=== PATIENT | male | born 1965 | race Caucasian/White ===

== ENCOUNTER → 2020-12-06 12:03 | Outpatient (CLI) | payer BC, SELFPAY ==
--- NOTE | ~2020-12-06 | XR_ITS ---
EXAMINATION: XR abdomen obstructive series DATE: 12/06/2020 12:52 INDICATION: Right lower quadrant pain TECHNIQUE: Supine and upright views of the abdomen. FINDINGS: No prior studies for comparison. The visualized lung parenchyma is normal.. There is a nonobstructive bowel gas pattern. Gas and stool are seen throughout the colon to the level of the rectum. There is no free air. No abnormal calcifi cations. IMPRESSION: 1. No acute abdominal abnormality. Reviewed, dictated and finalized at location A.
== END ==
PROVIDERS: PCP Family Medicine; Visit Provider Physician Assistant
DX: R10.31 Right lower quadrant pain (principal)
CPT/HCPCS: 74019

== ENCOUNTER 2021-03-01 05:15 | Day surgery (SDC) | payer BC, SELFPAY ==
[2021-02-21 13:28] VITALS: BMI 32.8
--- NOTE | 2021-03-01 09:22 | WPDANESEPPF ---
Anes - Initial Pre Proc Eval Procedure: Operation Date: 03/01/21 12:30 Proposed Procedures p Colonoscopy - Leobardo Hodges MD Date/Time: 03/01/21 09:22 Surgeon: Leobardo Hodges MD Pre Op Diagnosis: change in bowel habits Patient Data Age: 55 Gender: M Height: 1.78 m Weight: 104 kg Allergies Allergy/AdvReac Type Severity Reaction Status Date / Time No Known Allergies Allergy Verified 03/01/21 12:08 Home Medications Medication Instructions Recorded Confirmed Type atorvastatin 20 mg PO DAILY 02/21/21 03/01/21 History Patient hx anesthesia problems: none Family hx anesthesia problems: none PMFSH Past Medical History Medical History (Updated 02/05/21 @ 08:58 by Leobardo Hodges MD) BMI 32.0-32.9,adult Encounter for wellness examination Mixed hyperlipidemia Primary hypertension Surgical History Surgical History History of tonsillectomy History of vasectomy Family History Family History Mother Family history of aortic aneurysm Father Malignant neoplasm of prostate Other Family history of coronary artery disease Social History Social History Smoking status: Never smoker Second hand tobacco smoke exposure: No Alcohol intake: current Alcohol use details: BEER Substance use: never Substance use type: does not use Living arrangements: with family Gender identity (if verbalized by the patient): Male Spiritual care concerns: No Agree to blood products: Yes Anes - Eval Final PreProcedure Day of Procedure 03/01/21 09:22 Patient weight: obese Heart: regular rate and rhythm Lungs: clear to auscultation and normal air movement Airway: Mallampati scale class II Neurological: alert and oriented Last oral intake: >/= 8 hours ASA classification: III Emergent: no Anesthetic plan: proceed Anesthesia type and monitoring: general GIVS Informed Consent: The patient's anesthetic plan and its attendant risks and benefits were discussed with the patient/family/POA. Questions were solicited and answers provided to the satisfaction of the patient/family/POA.
[2021-03-01 12:10] VITALS: BP 116/79; PULSE 66; RESP 16; TEMP 36.4; O2SAT 97; BMI 32.5
[2021-03-01] MEDS: LACTATED RINGERS 1,000 ML 150 ML IV CONT (12:27)
--- NOTE | 2021-03-01 13:02 | PM.HPGS ---
History of Present Illness History of Present Illness Consent: Risks, benefits, and alternatives have been discussed and questions answered. Patient agrees to proceed with procedure. Chief complaint: change in bowel habits Narrative: Devon Coelho is a 55 year old male with change in bowel habits Review of Systems Review of Systems: All systems reviewed & are unremarkable except as noted in HPI and below PMFSH Past Medical History Medical History BMI 32.0-32.9,adult Encounter for wellness examination Mixed hyperlipidemia Primary hypertension Surgical History Surgical History History of tonsillectomy History of vasectomy Family History Family History Mother Family history of aortic aneurysm Father Malignant neoplasm of prostate Other Family history of coronary artery disease Social History Social History Smoking status: Never smoker Second hand tobacco smoke exposure: No Alcohol intake: current Alcohol use details: BEER Substance use: never Substance use type: does not use Living arrangements: with family Gender identity (if verbalized by the patient): Male Spiritual care concerns: No Agree to blood products: Yes Meds Home Medications and Allergies Home Medications Medication Instructions Recorded Confirmed Type atorvastatin 20 mg PO DAILY 02/21/21 03/01/21 History Allergies Allergy/AdvReac Type Severity Reaction Status Date / Time No Known Allergies Allergy Verified 03/01/21 12:08 Vital Signs Vital Signs - 24 hr 03/01/21 12:10 Temperature 36.4 C L Pulse Rate 66 Respiratory Rate 16 Blood Pressure 116/79 Pulse Oximetry 97 Exam Resp: Auscultation: clear to auscultation bilaterally Cardio: Rate: regular rate Rhythm: regular rhythm GI: GI Palp: Yes Soft to palpation and No Tenderness to palpation present (GI) Assessment and Plan Assessment and plan (1) Change in bowel habits: Code(s): R19.4 - Change in bowel habit Status: Acute Assessment and Plan: Colonoscopy with possible biopsy or polypectomy or cautery or injection of substances.
[2021-03-01 13:25] VITALS: BP 132/69; PULSE 71; RESP 20; O2SAT 96
[2021-03-01 13:35] VITALS: BP 124/81; PULSE 61; RESP 21; O2SAT 97
[2021-03-01 13:45] VITALS: BP 131/89; PULSE 56; RESP 19; O2SAT 99
== END 2021-03-01 13:58 | disposition home or self-care (01) ==
PROVIDERS: PCP Family Medicine; Visit Provider Internal Medicine Gastroenterology
PROC: 0DJD8ZZ Inspection of Lower Intestinal Tract, Via Natural or Artificial Opening Endoscopic (ICD-10-PCS; CPT 45378; principal; 2021-03-01 12:30)
DX: Z12.11 Encounter for screening for malignant neoplasm of colon (principal); R19.4 Change in bowel habit; E78.2 Mixed hyperlipidemia; I10 Essential (primary) hypertension; E66.9 Obesity, unspecified; Z68.32 Body mass index [BMI] 32.0-32.9, adult
CPT/HCPCS: 45378; J2704; J7120

== ENCOUNTER → 2023-03-27 13:09 | Outpatient (CLI) | payer BC, SELFPAY ==
--- NOTE | ~2023-03-27 | CT_ITS ---
EXAMINATION: CT abdomen pelvis w con INDICATION: Right lower quadrant abdominal pain TECHNIQUE: Computed tomographic images of the abdomen and pelvis were obtained after the administrati on of 100 cc of Omnipaque 350 intravenous contrast. The dose-length product (DLP) was 1124.77 mGy-cm. Automated exposure control and iterative reconstruction technique were employed. COMPARISON: None available FINDINGS: Minimal dependent atelectasis is present in the lung bases. The heart size is normal. The l iver, spleen, pancreas, gallbladder, and adrenal glands are normal. The kidneys are unremarkable. The appendix is normal. No pathologically enlarged abdominal or pelvic lymph nodes are identified. No fr ee intraperitoneal gas or evidence of bowel obstruction. A moderate volume of colonic stool is presen t. There is mild lumbar spondylosis. IMPRESSION: 1. No CT correlate for the patient's symptoms. Reviewed, dictated and finalized at location F.
== END ==
PROVIDERS: PCP Physician Assistant; Visit Provider Physician Assistant
DX: R10.9 Unspecified abdominal pain (principal)
CPT/HCPCS: 74177; Q9967

== ENCOUNTER 2024-12-13 10:31 | Outpatient (CLI) | payer BC, SELFPAY ==
--- NOTE | ~2024-12-13 | MR_ITS ---
MRI of the left knee Clinical history: Pain Technique: Coronal proton density and proton density-weighted images, sagittal proton-density and T2 fat-sat images, and axial proton-density fat-saturated images were acquired. Findings: Anterior and posterior cruciate ligaments are intact. Medial collateral ligament and the la teral collateral ligament complex are intact. Popliteus tendon is intact. Probable subtle oblique tear of the posterior horn the medial meniscus. No lateral meniscal tear seen . There is mild chondromalacia patella. There is focal moderate chondromalacia the central aspect of th e medial femoral condyle. Bone marrow signals are unremarkable. Extensor mechanism is intact. Minimal joint effusion present. No Brown's cyst. Impression: Oblique of the posterior horn of the medial meniscus. 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 Mild chondromalacia p atella. Minimal joint effusion. Reviewed, dictated and finalized at [facility]. Impression: Oblique of the posterior horn of the medial meniscus. 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 Mild chondromalacia patella. Minimal joint effusion.
== END 2024-12-13 10:32 | disposition home or self-care (01) ==
PROVIDERS: PCP Nurse Practitioner Family; Visit Provider Nurse Practitioner Family
DX: S83.242A Other tear of medial meniscus, current injury, left knee, initial encounter (principal); X58.XXXA Exposure to other specified factors, initial encounter
CPT/HCPCS: 73721